=== PATIENT | female | born 2000 | race Caucasian/White ===

== ENCOUNTER 2021-02-15 23:30 | Emergency (ER) | payer OTHER, BC ==
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
== END 2021-02-16 01:47 | disposition home or self-care (01) ==
LOC: EDSEX 23:30 → VM.ED 23:30
DX: S16.1XXA Strain of muscle, fascia and tendon at neck level, initial encounter (principal); S09.90XA Unspecified injury of head, initial encounter; S00.83XA Contusion of other part of head, initial encounter; V48.6XXA Car passenger injured in noncollision transport accident in traffic accident, initial encounter
CPT/HCPCS: 70450; 72125; 99283; 99285-25

== ENCOUNTER 2021-05-17 07:03 | Emergency (ER) | payer BC, OTHER ==
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
== END 2021-05-17 08:08 | disposition home or self-care (01) ==
LOC: VM.ED 07:03
DX: S61.512A Laceration without foreign body of left wrist, initial encounter (principal); Z79.899 Other long term (current) drug therapy; W26.8XXA Contact with other sharp object(s), not elsewhere classified, initial encounter; Y99.0 Civilian activity done for income or pay
CPT/HCPCS: 12002; 99282-25; 99283

== ENCOUNTER 2021-05-22 05:48 | Emergency (ER) | payer BC ==
--- NOTE | 2021-05-22 06:30 | EDM.PDOC ---
ED HPI GENERAL MEDICAL PROBLEM - General Chief Complaint: Behavioral/Psych Stated Complaint: Suicide Attempt Time Seen by Provider: 05/22/21 06:14 Source of Information: Reports: Patient History Limitations: Reports: No Limitations - History of Present Illness INITIAL COMMENTS - FREE TEXT/NARRATIVE: Pt. presents to ER with self-inflicted lacerations to L wrist. Pt. states that she cut her wrist with a razor. She states that she has felt overwhelmed because her child recently broke his arm and is going to have surgery for it on Monday. She is having financial problems and troubles paying her bills. Pt. states to ER staff that she is not actively suicidal and states that much of her depression and behavior tonight is due to consumption of alcohol tonight. She did state to EMS, however, that she did want to end her life when she cut herself about an hour ago. Pt. recently cut the same wrist with barbed wire and was seen in ER for this about 6 days ago. She had stitches at that time. Her tetanus is up to date. Pt. 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 She states that she has a lot to live for and states that she does not want to go to the [facility] or other inpatient psychiatric facility, as she needs to be with her child when he has surgery next week. Pt. states that she sees Dr. Collins at [facility] in [place] and Dr. Roe in [place] for primary care. Pt. states that she was in the [facility] once this past winter. She has a history of PTSD, depression, and bipolar disorder. She takes abilify, and also takes ambien to help with sleep. Pt. admits to consuming several alcoholic beverages tonight. Denies any street drug use or prescription drug misuse. She states that she vapes. Onset: Today Onset Date: 05/22/21 Location: Reports: Upper Extremity, Left - Related Data Allergies Allergy/AdvReac Type Severity Reaction Status Date / Time No Known Allergies Allergy Verified 05/22/21 07:17 Home Meds: Home Meds ARIPiprazole [Abilify Discmelt] 10 mg PO DAILY 02/16/21 [History] Zolpidem [Ambien] 10 mg PO BEDTIME 05/17/21 [History] Past Medical History - Past Health History Medical/Surgical History: Denies Medical/Surgical History Social & Family History - Family History Family Medical History: Unobtainable - Caffeine Use Caffeine Use: Reports: None ED ROS GENERAL - Review of Systems Review Of Systems: Comprehensive ROS is negative, except as noted in HPI. ED EXAM, GENERAL - Physical Exam Exam: See Below Exam Limited By: No Limitations General Appearance: Alert, WD/WN, No Apparent Distress Eye Exam: Bilateral Eye: EOMI, PERRL Nose: Normal Inspection, Normal Mucosa, No Blood Throat/Mouth: Normal Inspection, Normal Teeth, Normal Gums, Normal Oropharynx, No Airway Compromise Head: Atraumatic, Normocephalic Neck: Normal Inspection, Supple, Non-Tender Respiratory/Chest: No Respiratory Distress, Lungs Clear, Normal Breath Sounds, No Accessory Muscle Use, Chest Non-Tender Cardiovascular: Normal Peripheral Pulses, Regular Rate, Rhythm, No Edema, No JVD, No Murmur Peripheral Pulses: 4+: Radial (L) GI/Abdominal: Soft, Non-Tender, No Distention, No Mass (Female) Exam: Deferred Rectal (Female) Exam: Deferred Extremities: Other (numerous superficial lacerations/abrasions to L wrist, only 1 requiring closure.) Neurological: Alert, Oriented, CN II-XII Intact, Normal Cognition, Normal Gait, Normal Reflexes, No Motor/Sensory Deficits Psychiatric: Depressed Mood, Tearful Skin Exam: Warm, Dry, Intact, Normal Color, No Rash ED GENERAL MEDICAL PROCEDURES - Laceration/Wound Repair Left Ventral Wrist Lac/wound length in cm: 1.5 Appearance: Subcutaneous Distal NVT: Neuro & Vascular Intact, No Tendon Injury Skin Prep: Chlorhexidine (Hibiciens), Saline Saline irrigation (cc's): 1,000 Exploration/Debridement/Repair: Wound Explored Closed with: Dermabond Course - Vital Signs Last Recorded V/S: Last Vital Signs Temp 36.7 C 05/22/21 07:21 Pulse 72 05/22/21 07:21 Resp 15 05/22/21 07:21 BP 95/60 05/22/21 07:21 Pulse Ox 98 05/22/21 07:21 - Orders/Labs/Meds Orders: Active Orders 24 hr Category Date Time Status CULTURE URINE [RM] Stat Lab 05/22/21 07:26 Received Labs: Laboratory Tests 05/22/21 05/22/21 05/22/21 Range/Units 06:15 06:15 06:15 WBC 7.6 (4.0-10.0) x10^3/uL RBC 4.92 (4.00-5.50) x10^6/uL Hgb 15.9 (12.0-16.0) g/dL Hct 46.1 (33.0-47.0) % MCV 93.7 H (78.0-93.0) fL MCH 32.3 H (26.0-32.0) pg MCHC 34.5 (32.0-36.0) g/dL RDW Coeff of Darron 14.6 (10.0-15.0) % Plt Count 319 (130-400) x10^3/uL Neut % (Auto) 53.0 (50.0-80.0) % Lymph % (Auto) 35.6 (25.0-50.0) % Grand % (Auto) 9.7 (2.0-11.0) % Eos % (Auto) 1.2 (0.0-4.0) % Baso % (Auto) 0.5 (0.2-1.2) % PT 11.3 (9.9-12.5) SEC INR 1.0 L (2.0-3.5) Sodium 149 H (136-145) mmol/L Potassium 4.9 (3.5-5.1) mmol/L Chloride 109 H (98-107) mmol/L Carbon Dioxide 30 (21-32) mmol/L Anion Gap 14.9 (5-15) mmol/L BUN 9 (7-18) mg/dL Creatinine 0.8 (0.55-1.02) mg/dL Est Cr Clr Drug Dosing TNP Estimated GFR (MDRD) > 60 Glucose 101 H (70-99) mg/dL Calcium 9.1 (8.5-10.1) mg/dL Corrected Calcium 8.7 (8.5-10.1) mg/dL Phosphorus 3.7 (2.6-4.7) mg/dL Magnesium 2.6 H (1.8-2.4) mg/dL Total Bilirubin 0.3 (0.2-1.0) mg/dL AST 27 (15-37) U/L ALT 37 (14-59) U/L Alkaline Phosphatase 126 H (46-116) U/L Total Protein 8.9 H (6.4-8.2) g/dL Albumin 4.5 (3.4-5.0) g/dL Globulin 4.4 Albumin/Globulin Ratio 1.02 TSH, Ultra Sensitive 1.713 (0.358-3.74) uIU/mL Urine Color (YELLOW) Urine Appearance (CLEAR) Urine pH (5.0-8.0) Ur Specific Waldron Urine Protein (NEGATIVE) mg/dL Urine Glucose (UA) (NEGATIVE) mg/dL Urine Ketones (NEGATIVE) mg/dL Urine Occult Blood (NEGATIVE) Urine Nitrite (NEGATIVE) Urine Bilirubin (NEGATIVE) Urine Urobilinogen (0.2) EU/dL Ur Leukocyte Esterase (NEGATIVE) Urine RBC (NOT SEEN) /HPF Urine WBC (NOT SEEN) /HPF Ur Squamous Epith Cells (NOT SEEN) /HPF Urine Bacteria (NOT SEEN) /HPF Urine Mucus (NOT SEEN) /LPF Urine HCG, Qual (NEGATIVE) Urine Opiates Screen (NEGATIVE) Ur Buprenorphine Scrn (NEGATIVE) Ur Oxycodone Screen (NEGATIVE) Urine Methadone Screen (NEGATIVE) Ur Barbiturates Screen (NEGATIVE) Ur Phencyclidine Scrn (NEGATIVE) Ur Amphetamine Screen (NEGATIVE) U Methamphetamines Scrn (NEGATIVE) Urine MDMA Screen (NEGATIVE) U Benzodiazepines Scrn (NEGATIVE) U Cocaine Metab Screen (NEGATIVE) U Marijuana (THC) Screen (NEGATIVE) Ethyl Alcohol 213 H (0-3) mg/dL 05/22/21 05/22/21 05/22/21 Range/Units 07:26 07:26 07:26 WBC (4.0-10.0) x10^3/uL RBC (4.00-5.50) x10^6/uL Hgb (12.0-16.0) g/dL Hct (33.0-47.0) % MCV (78.0-93.0) fL MCH (26.0-32.0) pg MCHC (32.0-36.0) g/dL RDW Coeff of Darron (10.0-15.0) % Plt Count (130-400) x10^3/uL Neut % (Auto) (50.0-80.0) % Lymph % (Auto) (25.0-50.0) % Grand % (Auto) (2.0-11.0) % Eos % (Auto) (0.0-4.0) % Baso % (Auto) (0.2-1.2) % PT (9.9-12.5) SEC INR (2.0-3.5) Sodium (136-145) mmol/L Potassium (3.5-5.1) mmol/L Chloride (98-107) mmol/L Carbon Dioxide (21-32) mmol/L Anion Gap (5-15) mmol/L BUN (7-18) mg/dL Creatinine (0.55-1.02) mg/dL Est Cr Clr Drug Dosing Estimated GFR (MDRD) Glucose (70-99) mg/dL Calcium (8.5-10.1) mg/dL Corrected Calcium (8.5-10.1) mg/dL Phosphorus (2.6-4.7) mg/dL Magnesium (1.8-2.4) mg/dL Total Bilirubin (0.2-1.0) mg/dL AST (15-37) U/L ALT (14-59) U/L Alkaline Phosphatase (46-116) U/L Total Protein (6.4-8.2) g/dL Albumin (3.4-5.0) g/dL Globulin Albumin/Globulin Ratio TSH, Ultra Sensitive (0.358-3.74) uIU/mL Urine Color Yellow (YELLOW) Urine Appearance Slightly cloudy H (CLEAR) Urine pH 7.0 (5.0-8.0) Ur Specific Waldron 1.025 Urine Protein Negative (NEGATIVE) mg/dL Urine Glucose (UA) Negative (NEGATIVE) mg/dL Urine Ketones Negative (NEGATIVE) mg/dL Urine Occult Blood Negative (NEGATIVE) Urine Nitrite Negative (NEGATIVE) Urine Bilirubin Negative (NEGATIVE) Urine Urobilinogen 0.2 (0.2) EU/dL Ur Leukocyte Esterase Trace H (NEGATIVE) Urine RBC 0-5 (NOT SEEN) /HPF Urine WBC 0-5 (NOT SEEN) /HPF Ur Squamous Epith Cells Few H (NOT SEEN) /HPF Urine Bacteria Rare (NOT SEEN) /HPF Urine Mucus Occasional H (NOT SEEN) /LPF Urine HCG, Qual Negative (NEGATIVE) Urine Opiates Screen Negative (NEGATIVE) Ur Buprenorphine Scrn Negative (NEGATIVE) Ur Oxycodone Screen Negative (NEGATIVE) Urine Methadone Screen Negative (NEGATIVE) Ur Barbiturates Screen Negative (NEGATIVE) Ur Phencyclidine Scrn Negative (NEGATIVE) Ur Amphetamine Screen Negative (NEGATIVE) U Methamphetamines Scrn Negative (NEGATIVE) Urine MDMA Screen Negative (NEGATIVE) U Benzodiazepines Scrn Negative (NEGATIVE) U Cocaine Metab Screen Negative (NEGATIVE) U Marijuana (THC) Screen Positive H (NEGATIVE) Ethyl Alcohol (0-3) mg/dL Meds: Medications Discontinued Medications Generic Name Dose Route Start Last Admin Trade Name Freq PRN Reason Stop Dose Admin Lidocaine HCl 30 ml 05/22/21 06:07 05/22/21 06:34 Lidocaine 1% 30 Ml Sdv INJECT 05/22/21 06:08 Not Given ONETIME ONE Departure - Departure Time of Disposition: 07:46 Disposition: Home, Self-Care 01 Clinical Impression: Alcohol abuse, Self-harm - Discharge Information Instructions: Laceration Care, Adult, Self-Harming Behavior Information Referrals: Bella Roe MD [Primary Care Provider] - Forms: ED Department Discharge Additional Instructions: Home to rest. Return to ER if you feel like you are a threat to yourself or others. You can also call [phone] ([facility] crisis line) Keep wrist dry for 24 hours. Return to ER if you notice any redness, swelling, or discharge from the area. Sepsis Event Note (ED) - Focused Exam Vital Signs: Vital Signs Temp Pulse Resp BP Pulse Ox 05/22/21 07:21 36.7 C 72 15 95/60 98 - Problem List Review Problem List Initiated/Reviewed/Updated: Yes - My Orders Last 24 Hours: My Active Orders 05/22/21 07:26 CULTURE URINE [RM] Stat - Assessment/Plan Last 24 Hours: My Active Orders 05/22/21 07:26 CULTURE URINE [RM] Stat Plan: Pt. spoke with monserrat Babb at [facility]. She again denied any suicidal ideation and states that she is not a threat to herself or others. Pt. contracted for safety. Family was present during her care in ER and are extremely supportive. Advised to abstain from consumption of alcohol. She states that she has too much to live for to harm herself. Advised to return to ER or contact [facility] crisis line is she starts feeling suicidal. All questions were answered.
[2021-05-22] MEDS: Lidocaine 1% 30 ML SDV INJECT ONE (06:34)
[2021-05-22 06:48] LABS: ANION GAP 14.9 mmol/L (5-15); CHLORIDE,CL 109 mmol/L (98-107); SODIUM,NA 149 mmol/L (136-145)
[2021-05-22 07:40] LABS: BARBITURATE SCREEN,URINE NEGATIVE (NEGATIVE); BENZODIAZEPINES SCREEN,URINE NEGATIVE (NEGATIVE); METHAMPHETAMINE SCREEN, URINE NEGATIVE (NEGATIVE); THC SCREEN,URINE 50 NG/ML POSITIVE (NEGATIVE)
== END 2021-05-22 07:57 | disposition home or self-care (01) ==
LOC: VM.ED 05:48 → SUPCPDRO 05:48 → VM.ED 07:57
DX: S61.512A Laceration without foreign body of left wrist, initial encounter (principal); F10.10 Alcohol abuse, uncomplicated; Y90.7 Blood alcohol level of 200-239 mg/100 ml; X78.8XXA Intentional self-harm by other sharp object, initial encounter
CPT/HCPCS: 12001; 36415; 80053; 80305-QW; 80307; 81001; 81025; 83735; 84100; 84443; 85025; 85610; 87086; 87088; 99284; 99284-25

== ENCOUNTER 2021-06-02 07:52 | Emergency (ER) | payer BC ==
--- NOTE | 2021-06-02 08:19 | EDM.PDOC ---
ED HPI GENERAL MEDICAL PROBLEM - General Time Seen by Provider: 06/02/21 08:00 Source of Information: Reports: Patient History Limitations: Reports: No Limitations - History of Present Illness INITIAL COMMENTS - FREE TEXT/NARRATIVE: 911 was called by family for a patient who was making suicidal statements. [facility] states that she made similar statements yesterday but denied suicidal ideation to them. Pt.has been drinking. She was seen in ER on 05/22 for suicidal ideation but again denied this to medical staff. Pt. spoke with screener at [facility] and pt. was felt not to need to be placed in inpatient psych. Pt. continues to self harm and cut her wrists (she was doing this on the as well). Pt. denies any use of drugs. Denies any chest pain, shortness of breath, or lightheadedness. No fever or chills. No nausea, vomiting, or diarrhea. Pt. again denies suicidal ideation to medical staff, but did state to law enforcement that she was. She states that she was recently started on lexapro, but feels that this is not helping. She has not taken the medication for approx. 6 days. Pt. is tearful, resistive to examination. She does not want to be placed into inpatient psychiatric care. Family (Sister, Brother and Mother) have been in contact with the hospital, stating that they are not comfortable providing a safe environment or being responsible for the patient. They state that the patient is extremely manipulative, and they fear that she is a risk to herself if she is not being monitored in an inpatient setting while her medications are changed/adjusted. Onset: Today - Related Data Allergies Allergy/AdvReac Type Severity Reaction Status Date / Time No Known Allergies Allergy Verified 05/22/21 07:17 Home Meds: Home Meds ARIPiprazole [Abilify Discmelt] 10 mg PO DAILY 02/16/21 [History] Zolpidem [Ambien] 10 mg PO BEDTIME 05/17/21 [History] Past Medical History - Past Health History Medical/Surgical History: Denies Medical/Surgical History Psychiatric History: Reports: Psych Hospitalization(s), Suicidal Ideation Social & Family History - Family History Family Medical History: Unobtainable - Caffeine Use Caffeine Use: Reports: None ED ROS GENERAL - Review of Systems Review Of Systems: See Below Constitutional: Reports: No Symptoms HEENT: Reports: No Symptoms Respiratory: Reports: No Symptoms Cardiovascular: Reports: No Symptoms Endocrine: Reports: No Symptoms GI/Abdominal: Reports: No Symptoms : Reports: No Symptoms Musculoskeletal: Reports: Other (superficial lacerations to both wrists) Neurological: Reports: Change in Speech (slurred) Psychiatric: Reports: Anxiety, Depression, Suicidal Ideation Hematologic/Lymphatic: Reports: No Symptoms Immunologic: Reports: No Symptoms ED EXAM, GENERAL - Physical Exam Exam: See Below Exam Limited By: No Limitations General Appearance: Alert, WD/WN, No Apparent Distress Eye Exam: Bilateral Eye: EOMI, Normal Fundi, Normal Inspection, PERRL Head: Atraumatic, Normocephalic Neck: Normal Inspection, Supple, Non-Tender, Full Range of Motion Respiratory/Chest: No Respiratory Distress, Lungs Clear, Normal Breath Sounds, No Accessory Muscle Use, Chest Non-Tender Cardiovascular: Normal Peripheral Pulses, Regular Rate, Rhythm, No Edema GI/Abdominal: Non-Tender, No Distention (Female) Exam: Deferred Rectal (Female) Exam: Deferred Neurological: Alert, Oriented, CN II-XII Intact, Normal Cognition, Normal Reflexes, No Motor/Sensory Deficits Psychiatric: Anxious, Tearful Skin Exam: Warm, Dry, Intact, Normal Color Course - Orders/Labs/Meds Labs: Laboratory Tests 06/02/21 06/02/21 06/02/21 Range/Units 08:20 08:20 09:36 WBC 6.6 (4.0-10.0) x10^3/uL RBC 4.28 (4.00-5.50) x10^6/uL Hgb 13.9 D (12.0-16.0) g/dL Hct 40.8 (33.0-47.0) % MCV 95.3 H (78.0-93.0) fL MCH 32.5 H (26.0-32.0) pg MCHC 34.1 (32.0-36.0) g/dL RDW Coeff of Darron 14.3 (10.0-15.0) % Plt Count 327 (130-400) x10^3/uL Neut % (Auto) 43.8 L (50.0-80.0) % Lymph % (Auto) 47.6 (25.0-50.0) % [place] % (Auto) 6.6 (2.0-11.0) % Eos % (Auto) 1.4 (0.0-4.0) % Baso % (Auto) 0.6 (0.2-1.2) % Sodium 146 H (136-145) mmol/L Potassium 3.3 L D (3.5-5.1) mmol/L Chloride 111 H (98-107) mmol/L Carbon Dioxide 25 (21-32) mmol/L Anion Gap 13.3 (5-15) mmol/L BUN 6 L (7-18) mg/dL Creatinine 0.9 (0.55-1.02) mg/dL Est Cr Clr Drug Dosing TNP Estimated GFR (MDRD) > 60 Glucose 96 (70-99) mg/dL Calcium 7.7 L (8.5-10.1) mg/dL Corrected Calcium 8.0 L (8.5-10.1) mg/dL Phosphorus 2.3 L (2.6-4.7) mg/dL Magnesium 2.0 (1.8-2.4) mg/dL Total Bilirubin 0.2 (0.2-1.0) mg/dL AST 33 (15-37) U/L ALT 35 (14-59) U/L Alkaline Phosphatase 117 H (46-116) U/L Total Protein 7.2 (6.4-8.2) g/dL Albumin 3.6 (3.4-5.0) g/dL Globulin 3.6 Albumin/Globulin Ratio 1.00 TSH, Ultra Sensitive 1.156 (0.358-3.74) uIU/mL Urine Color Yellow (YELLOW) Urine Appearance Clear (CLEAR) Urine pH 7.5 (5.0-8.0) Ur Specific [place] 1.025 Urine Protein Negative (NEGATIVE) mg/dL Urine Glucose (UA) Negative (NEGATIVE) mg/dL Urine Ketones Negative (NEGATIVE) mg/dL Urine Occult Blood Moderate H (NEGATIVE) Urine Nitrite Negative (NEGATIVE) Urine Bilirubin Negative (NEGATIVE) Urine Urobilinogen 0.2 (0.2) EU/dL Ur Leukocyte Esterase Negative (NEGATIVE) Urine RBC 5-10 H (NOT SEEN) /HPF Urine WBC 0-5 (NOT SEEN) /HPF Ur Squamous Epith Cells Few H (NOT SEEN) /HPF Urine Bacteria Rare (NOT SEEN) /HPF Urine Mucus Occasional H (NOT SEEN) /LPF Urine HCG, Qual (NEGATIVE) Urine Opiates Screen (NEGATIVE) Ur Buprenorphine Scrn (NEGATIVE) Ur Oxycodone Screen (NEGATIVE) Urine Methadone Screen (NEGATIVE) Acetaminophen 0 L (10-30) ug/ml Ur Barbiturates Screen (NEGATIVE) Ur Phencyclidine Scrn (NEGATIVE) Ur Amphetamine Screen (NEGATIVE) U Methamphetamines Scrn (NEGATIVE) Urine MDMA Screen (NEGATIVE) U Benzodiazepines Scrn (NEGATIVE) U Cocaine Metab Screen (NEGATIVE) U Marijuana (THC) Screen (NEGATIVE) Ethyl Alcohol 330 H* (0-3) mg/dL 06/02/21 06/02/21 Range/Units 09:36 09:36 WBC (4.0-10.0) x10^3/uL RBC (4.00-5.50) x10^6/uL Hgb (12.0-16.0) g/dL Hct (33.0-47.0) % MCV (78.0-93.0) fL MCH (26.0-32.0) pg MCHC (32.0-36.0) g/dL RDW Coeff of Darron (10.0-15.0) % Plt Count (130-400) x10^3/uL Neut % (Auto) (50.0-80.0) % Lymph % (Auto) (25.0-50.0) % [place] % (Auto) (2.0-11.0) % Eos % (Auto) (0.0-4.0) % Baso % (Auto) (0.2-1.2) % Sodium (136-145) mmol/L Potassium (3.5-5.1) mmol/L Chloride (98-107) mmol/L Carbon Dioxide (21-32) mmol/L Anion Gap (5-15) mmol/L BUN (7-18) mg/dL Creatinine (0.55-1.02) mg/dL Est Cr Clr Drug Dosing Estimated GFR (MDRD) Glucose (70-99) mg/dL Calcium (8.5-10.1) mg/dL Corrected Calcium (8.5-10.1) mg/dL Phosphorus (2.6-4.7) mg/dL Magnesium (1.8-2.4) mg/dL Total Bilirubin (0.2-1.0) mg/dL AST (15-37) U/L ALT (14-59) U/L Alkaline Phosphatase (46-116) U/L Total Protein (6.4-8.2) g/dL Albumin (3.4-5.0) g/dL Globulin Albumin/Globulin Ratio TSH, Ultra Sensitive (0.358-3.74) uIU/mL Urine Color (YELLOW) Urine Appearance (CLEAR) Urine pH (5.0-8.0) Ur Specific [place] Urine Protein (NEGATIVE) mg/dL Urine Glucose (UA) (NEGATIVE) mg/dL Urine Ketones (NEGATIVE) mg/dL Urine Occult Blood (NEGATIVE) Urine Nitrite (NEGATIVE) Urine Bilirubin (NEGATIVE) Urine Urobilinogen (0.2) EU/dL Ur Leukocyte Esterase (NEGATIVE) Urine RBC (NOT SEEN) /HPF Urine WBC (NOT SEEN) /HPF Ur Squamous Epith Cells (NOT SEEN) /HPF Urine Bacteria (NOT SEEN) /HPF Urine Mucus (NOT SEEN) /LPF Urine HCG, Qual Negative (NEGATIVE) Urine Opiates Screen Negative (NEGATIVE) Ur Buprenorphine Scrn Negative (NEGATIVE) Ur Oxycodone Screen Negative (NEGATIVE) Urine Methadone Screen Negative (NEGATIVE) Acetaminophen (10-30) ug/ml Ur Barbiturates Screen Negative (NEGATIVE) Ur Phencyclidine Scrn Negative (NEGATIVE) Ur Amphetamine Screen Negative (NEGATIVE) U Methamphetamines Scrn Negative (NEGATIVE) Urine MDMA Screen Negative (NEGATIVE) U Benzodiazepines Scrn Negative (NEGATIVE) U Cocaine Metab Screen Negative (NEGATIVE) U Marijuana (THC) Screen Positive H (NEGATIVE) Ethyl Alcohol (0-3) mg/dL Departure - Departure Time of Disposition: 12:00 Disposition: Home, Self-Care 01 Clinical Impression: Alcohol abuse - Discharge Information Instructions: Major Depressive Disorder, Adult, [id number], Alcohol Intoxication, [id number] Referrals: Bella Roe MD [Primary Care Provider] - Additional Instructions: Follow-up with Dr. Collins regarding your lexapro. Recheck in clinic in 7-10 days - Assessment/Plan Plan: Pt. was observed in ER while she sobered up. [facility] screener Evan contacted. He spoke with the patient and family. Plan is for patient to be discharged with close follow-up with [facility]. She will be contacting Dr. Collins, her psychiatrist regarding her medication as well. She contracted for safety. Advised to not drink ETOH. She denied suicidal ideation at time and will return if she becomes suicidal.
[2021-06-02 08:54] LABS: CHLORIDE,CL 111 mmol/L (98-107); SODIUM,NA 146 mmol/L (136-145)
[2021-06-02 09:00] LABS: ANION GAP 13.3 mmol/L (5-15)
[2021-06-02 09:09] LABS: ACETAMINOPHEN 0 ug/ml (10-30)
[2021-06-02 09:55] LABS: BARBITURATE SCREEN,URINE NEGATIVE (NEGATIVE); BENZODIAZEPINES SCREEN,URINE NEGATIVE (NEGATIVE); METHAMPHETAMINE SCREEN, URINE NEGATIVE (NEGATIVE); THC SCREEN,URINE 50 NG/ML POSITIVE (NEGATIVE)
== END 2021-06-02 12:24 | disposition home or self-care (01) ==
LOC: VM.ED 07:52
DX: F10.10 Alcohol abuse, uncomplicated (principal); Y90.8 Blood alcohol level of 240 mg/100 ml or more
CPT/HCPCS: 36415; 80053; 80143; 80305-QW; 80307; 81001; 81025; 83735; 84100; 84443; 85025; 99283

== ENCOUNTER 2021-06-11 04:20 | Emergency (ER) | payer BC ==
--- NOTE | 2021-06-11 05:25 | EDM.PDOCBH ---
ED HPI GENERAL MEDICAL PROBLEM - General Chief Complaint: Behavioral/Psych Stated Complaint: Cutting arms, Psych, Self Harm Time Seen by Provider: 06/11/21 04:55 Source of Information: Reports: Patient, Police History Limitations: Reports: No Limitations - History of Present Illness INITIAL COMMENTS - FREE TEXT/NARRATIVE: Patient comes emergency department today from home with her sister in the local Police [employer] with concerns of self cutting. Patient has a longstanding history of anxiety and depression as well as PTSD and bipolar disorder per the patient. She has been in the [facility] in the past but it has been approximately 1 year since the last time. She did have an attempt of suicide by overdose when she was about 14. She had an accidental recreational overdose on guaifenesin when she was 16. She does see an GRACIE Collins at psychiatry at [facility]. She was on Abilify but about 4 weeks ago was switched to Lexapro. She relates that every time she has a medication change she has cut increased anxiety and tends to cut herself. Saud she was drinking alcohol about 10:00 last night she had a total of 4 shots of alcohol at that time. She relates that she drinks quite heavily about 4 days a week. She is uninterested in any assistance with her alcohol misuse. While she was sitting up visiting with her sister and her friend she relates that she became overwhelmed with anxiety and she took to the only way she knows how to get rid of her anxiety and that is to cut herself on her wrist. She did not do this in an attempt to harm herself. She is not suicidal. Her last tetanus immunization was approximately 3 years ago she reports. She denies taking any medications in an attempt to harm herself saud. She does use medical marijuana but no other recreational drugs. She does have a son at home that she has to take care of. She is looking forward to going to work today. She knows that she has some mental health issues but she is not suicidal. She would never harm herself to kill herself because she has a son that she must take care of. She states if I was suicidal I would never tell anyone and I would just harm myself but she does not have a plan and she would never kill herself because she has a son to take care of. - Related Data Allergies Allergy/AdvReac Type Severity Reaction Status Date / Time No Known Allergies Allergy Verified 06/11/21 04:31 Home Meds: Home Meds ARIPiprazole [Abilify Discmelt] 10 mg PO DAILY 02/16/21 [History] Zolpidem [Ambien] 10 mg PO BEDTIME 05/17/21 [History] Past Medical History - Past Health History Medical/Surgical History: Denies Medical/Surgical History Psychiatric History: Reports: Addiction, Anxiety, Depression, Psych Hospitalization(s), Suicide Attempt, Suicidal Ideation Social & Family History - Family History Family Medical History: Unobtainable - Caffeine Use Caffeine Use: Reports: None ED ROS GENERAL - Review of Systems Review Of Systems: Comprehensive ROS is negative, except as noted in HPI. ED EXAM, BEHAVIORAL HEALTH - Physical Exam Exam: See Below Text/Narrative:: Patient is alert appropriate interactive does not appear to be intoxicated. She has good eye contact. She is laughing and joking. She is remorseful for self cutting. But she does state multiple times that this is not an attempt to kill her self this is her only way of releasing her stress. Exam Limited By: No Limitations General Appearance: Alert, WD/WN, No Apparent Distress Eye Exam: Bilateral Eye: EOMI, PERRL Ears: Normal External Exam Nose: Normal Inspection Throat/Mouth: Normal Inspection Head: Atraumatic, Normocephalic Neck: Normal Inspection, Supple, Non-Tender Respiratory/Chest: No Respiratory Distress, Lungs Clear Cardiovascular: Normal Peripheral Pulses, Regular Rate, Rhythm GI/Abdominal: Normal Bowel Sounds, Soft (Female) Exam: Deferred Rectal (Female) Exam: Deferred Back Exam: Normal Inspection, Full Range of Motion Extremities: Normal Range of Motion, Normal Capillary Refill. No: Normal Inspection (There is approximately 6 very superficial transverse lacerations that minimally extend into the dermis on the left volar surface of the forearm distally. CMS is intact appropriately. No signs of infection.) Neurological: Alert, Normal Mood/Affect, CN II-XII Intact, Normal Gait, No Motor/Sensory Deficits, Oriented x 3 Psychiatric: Alert, Normal Affect, Normal Cognition, Normal Mood, Oriented. No: Agitated, Disoriented, Inattentive, Non-Communicative, Poor Eye Contact, Uncooperative, Flight of Ideas, Homicidal Thoughts, Phobic, Mormon Delusions, Suicidal Plan, Suicidal Thoughts, Tangential Thoughts, Auditory Hallucinations, Visual Hallucinations, Grandiose Thoughts, Pressured Speech, Paranoid Thoughts, Threatening Behavior Skin Exam: Warm, Dry, Intact, Normal color, No rash COURSE, BEHAVIORAL HEALTH COMP - Course Vital Signs: Last Vital Signs Temp 98.1 F 06/11/21 04:20 Pulse 65 06/11/21 04:20 Resp 16 06/11/21 04:20 BP 120/71 06/11/21 04:20 Pulse Ox 99 06/11/21 04:20 Re-Assessment/Re-Exam: I sat with the patient and visited with her for about 45 minutes at the bedside. She is alert appropriate oriented interactive. She is remorseful and the fact that she cut herself. She states multiple times and I am not suicidal and would never harm myself because I have a son to take care of. She does contract for safety. She does not want any assistance for her alcohol usage at this time. I did advise her that the polysubstance usage could really interfere with her mental health with the usage of medical marijuana alcohol and her psychotropic medications that she is taking as prescribed she reports. She does meet with her counselor on a biweekly basis. She is uninterested in assistance with her substance use disorder. She contracts for safety while she is here her sister is here with her and feels comfortable taking her home. There is no confusion hallucination or delusions. No paranoia. No suicidal or homicidal ideation. Her hygiene is on remarkable. She is remorseful for the actions that she had tonight. She is cooperative and interactive. We had an extended conversation with the patient the police as well as her sister and they are comfortable with the discharge at this time. Discharge directions as below are explained to the patient and her sister they are comfortable with this plan and their questions are answered. Departure - Departure Time of Disposition: 05:17 Disposition: Home, Self-Care 01 Clinical Impression: Self-cutting of wrist, No suicidal thoughts - Discharge Information Instructions: Laceration Care, Adult, [id number], Self-Harming Behavior Information, Nonsutured Laceration Care Forms: ED Department Discharge Additional Instructions: Cleanse the wound twice daily with soap and water. Bacitracin and bandage until healed. Watch for signs of infection. Contact your psychiatrist tomorrow by phone and discuss your medications concerns. You have contracted for safety today. You will call 911 if you feel at anytime that you are suicidal. You can also reach out to the [facility] [place] Crisis Line at [phone] at anytime when you feel any thoughts of anxiety depression or self cutting or suicidal ideation. Return to the ED if new or worsening symptoms. Sepsis Event Note (ED) - Evaluation Sepsis Screening Result: No Definite Risk - Focused Exam Vital Signs: Vital Signs Temp Pulse Resp BP Pulse Ox 06/11/21 04:20 98.1 F 65 16 120/71 99
== END 2021-06-11 05:39 | disposition home or self-care (01) ==
LOC: VM.ED 04:20
DX: S61.512A Laceration without foreign body of left wrist, initial encounter (principal); X78.8XXA Intentional self-harm by other sharp object, initial encounter
CPT/HCPCS: 99284